=== PATIENT | female | born 1990 | race Caucasian/White ===

== ENCOUNTER → 2016-08-21 | Outpatient (REF) ==
--- NOTE | 2016-08-21 11:59 | REP ---
Clinical: Pain and disability. Technique: AP, lateral, coned-down views of the lumbar spine. Findings: Three views of the lumbosacral spine demonstrate satisfactory alignment and lordosis without acute fracture / compression injury or subluxation. No significant degenerative changes are appreciated. Impression: Age appropriate lumbosacral spine radiographs. No acute fracture / compression injury or subluxation. Signed by Brady Bright MD 08/21/2016 11:50 A
== END ==
LOC: M SMT 11:20
PROVIDERS: ATTEND Internal Medicine
DX: Z02.71 Encounter for disability determination (principal)